=== PATIENT | female | born 1960 | race Caucasian/White ===

== ENCOUNTER 2018-12-26 17:48 | Emergency (ER) | payer SELFPAY ==
[~2018-12-26] VITALS: Ht 163 cm; Wt 94.2 kg
--- NOTE | 2018-12-26 20:08 | ED Lower Extremity ---
General Chief Complaint: Lower Extremity Stated Complaint: RIGHT LEFT LEG SWELLING Nursing Triage Note: Patient c/o right leg pain and swelling. States that she had her left hip replaced 5 weeks ago and ever since then her right leg has been swelling up. She states that when her right leg swells it becomes painful to walk. Nursing Sepsis Screen: No Definite Risk Source: patient History of Present Illness Date Seen by Provider: Dec 26, 2018 Time Seen by Provider: 20:07 Initial Comments 58-year-old female presenting with complaints of swelling to the right leg. She states that this is been going on for several months. It was occurring before she had surgery on her left hip for hip replacement 5 weeks ago. She has tried elevation, ice, compression socks with minimal improvement. She has not seen her primary provider about the leg swelling. She states that she came to the emergency department today because she is tired of dealing with swelling and wants it to go away. She states that she is not having any pain in the right leg but that she is getting swelling there. When she had talked to her orthopedic doctor about it they felt that it was related to her right hip and that it would need to be replaced as well. Her last hip replacement on the right side was over 15 years ago. She denies any new trauma or injury to the right leg. Allergies and Home Medications Patient Home Medication List Home Medication List Reviewed: Yes Review of Systems Constitutional: No chills, No fever EENTM: no symptoms reported Respiratory: No dyspnea on exertion, No short of breath Cardiovascular: No chest pain Gastrointestinal: no symptoms reported Genitourinary: no symptoms reported Musculoskeletal: see HPI Skin: no symptoms reported Psychiatric/Neurological: Denies Numbness, Denies Paresthesia, Denies Tingling Past Rmbevig-Xpimal-Bamvpw Hx Past Med/Social Hx: Reviewed Nursing Past Med/Soc Hx Patient Social History Alcohol Use: Denies Use Recreational Drug Use: No Smoking Status: Current Everyday Smoker Type Used: Cigarettes 2nd Hand Smoke Exposure: No Recent Foreign Travel: No Contact w/Someone Who Travel: No Recent Infectious Disease Expo: No Recent Hopitalizations: No Physical Abuse: No Sexual Abuse: No Mistreated: No Fear: No Seasonal Allergies Seasonal Allergies: No Past Medical History Surgeries: Yes Hysterectomy, Orthopedic, Tonsillectomy Respiratory: No Cardiac: Yes Hypertension 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 oz. kg; 35.00 BMI Method: General Appearance: WD/WN, no apparent distress Neck: non-tender, full range of motion, supple, normal inspection Cardiovascular: normal peripheral pulses, regular rate, rhythm, other (edema with swelling to the right lower extremity.) Respiratory: chest non-tender, lungs clear, normal breath sounds, no respiratory distress, no accessory muscle use Neurologic/Tendon: normal sensation, normal motor functions Neurologic/Psychiatric: alert Skin: normal color, warm/dry Progress/Results/Core Measures Results/Orders Vital Signs/I&O 12/26/18 12/26/18 18:50 20:17 Temp 37.0 37.0 Pulse 95 95 Resp 18 18 B/P (MAP) 156/106 (123) 156/106 (123) Pulse Ox 98 98 O2 Delivery Room Air Room Air Blood Pressure Mean: 123 Progress Progress Note : Progress Note I advised the patient that I would recommend an ultrasound to evaluate the blood flow that leg since she has not had that done. However I do not have access to ultrasound tonight or this weekend. She states she wants the swelling to go away. I did told her that the treatment she was telling her the ones that we would have to try and help with the swelling. She was distressed that I did not have any other options to offer her. She was also upset that I had not reviewed all of her chart in the computer prior to coming to speak with her. I explained that I was with a critical patient and knew that she had been waiting site just to come in to talk with her other than review the chart. I told her if she would prefer I can go reviewed the chart and come back. She was willing to proceed with answering questions at that point. She was upset and frustrated that I could not make the swelling go away in her leg. She got her purse and belongings and got up to leave rather than sign any AMA papers or wait to speak with any other staff. Departure Impression Primary Impression: Left against medical advice Additional Impression: Right leg swelling Disposition: 07 AGAINST MEDICAL ADVICE Condition: Against Medical Advice Departure-Patient Inst. Referrals: CANDE RIVERS DO (PCP) Primary Care Physician HEIDE HANDY MD Dec 26, 2018 20:08
[2018-12-26 20:17] VITALS: BP 156/106
--- NOTE | 2018-12-26 20:19 | NUR ---
pt. upset about the wait. pt. had been informed of the delay was do to an emergency. pt. left without signing the ama form.
--- OUTSIDE RECORDS SUMMARY | 2019-01-19 09:57 | XMS REPORT | Continuity of Care Document ---
Author Organization Unknown POS Address Unknown SP Phone Unavailable SP Allergies There is no data. Medications There is no data. 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 Results There is no data. Encounters ACCT No. Visit Date/Time Discharge Status POS Pt. Type Provider Facility Loc./Un it POS Complaint POS [id number] 10/11/2018 08:50:00 10/11/2018 23:59: 59 CLS SP Outpatient [facility] SP [id number] 12/26/2018 17:53:00 019 20:20:00 SP DIS Outpatient HEIDE HANDY MD SP - [facility] RIGHT LEFT LEG SWELLING SP
== END 2018-12-26 20:20 | disposition left against medical advice (07) ==
LOC: EDUNIT# 17:48 → ER FS 17:53
DX: M79.89 Other specified soft tissue disorders (principal); I10 Essential (primary) hypertension; F17.210 Nicotine dependence, cigarettes, uncomplicated; Z96.641 Presence of right artificial hip joint; Z90.710 Acquired absence of both cervix and uterus; Z90.89 Acquired absence of other organs
CPT/HCPCS: 99283

== ENCOUNTER → 2021-12-22 | Outpatient (CLI) | payer BC ==
--- NOTE | 2021-12-22 15:55 | Diagnostic Imaging Report ---
INDICATION: Right knee pain. COMPARISON: None. FINDINGS: Frontal and lateral radiographic views of the right knee were obtained. There are moderate osteoarthritic changes consisting of tricompartmental joint space narrowing with osteophyte formations. Joint spaces are otherwise maintained. Osseous structures are intact. Moderate suprapatellar joint effusion is noted. No unexpected radiopaque foreign bodies are seen. IMPRESSION: 1. Moderate joint effusion, but no radiographic evidence of acute fracture or dislocation of the right knee. 2. Moderate osteoarthritic changes. Dictated by: Dictated on workstation # [id number]
== END ==
LOC: RAD FS 13:46
PROVIDERS: ATTEND Nurse Practitioner Family
DX: M17.11 Unilateral primary osteoarthritis, right knee (principal)
CPT/HCPCS: 73560

== ENCOUNTER 2022-03-20 00:46 | Emergency (ER) | payer OTHER, BC ==
[~2022-03-20] VITALS: Ht 162 cm; Wt 90.7 kg
--- NOTE | 2022-03-20 00:59 | ED Upper Extremity ---
General Stated Complaint: WC,L HAND PAIN Source: patient Exam Limitations: no limitations History of Present Illness Date Seen by Provider: Mar 20, 2022 Time Seen by Provider: 00:53 Initial Comments 62-year-old female presents to the emergency department today for left hand pain. She had a work comp injury when she hit her hand with a rubber mallet 2 weeks ago. She has continued pain lateral aspect of her left little finger, tender to the base of her hand extending medially. She states she is used Tylenol, ibuprofen, tramadol and hydrocodone without any relief. She has follow-up with her primary doctor tomorrow. She states "I just want the pain to go away." She denies any new injuries. She was seen in urgent care initially after the injury and had x-rays which were negative. Pain is dull throbbing in the above-mentioned areas. Aggravated by movement and relieved by rest. She describes it as moderate to severe. Allergies and Home Medications Patient Home Medication List Home Medication List Reviewed: Yes Review of Systems Constitutional: no symptoms reported EENTM: no symptoms reported Respiratory: no symptoms reported Cardiovascular: no symptoms reported Gastrointestinal: no symptoms reported Genitourinary: no symptoms reported Musculoskeletal: other (Left hand pain) Skin: no symptoms reported Psychiatric/Neurological: No Symptoms Reported Past Kdtdtvs-Uluuaj-Rqxwvc Hx Patient Social History Tobacco Use?: Yes Use of E-Cig and/or Vaping dev: No Substance use?: No Alcohol Use?: No Seasonal Allergies Seasonal Allergies: No Past Medical History Surgeries: Yes Hysterectomy, Orthopedic, Tonsillectomy Respiratory: No Cardiac: Yes Hypertension 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 oz. kg; 35.00 BMI Method: General Appearance: WD/WN, no apparent distress HEENT: normal ENT inspection, pharynx normal Neck: non-tender Cardiovascular: regular rate, rhythm, no murmur Respiratory: chest non-tender, normal breath sounds Gastrointestinal: normal bowel sounds, soft Shoulder: normal inspection, non-tender Elbow/Forearm: normal inspection, non-tender Wrist: Yes normal inspection, Yes non-tender Hand: soft tissue tenderness (Tenderness palpation throughout the little finger and hand beneath the little finger of her left hand. There is no swelling, deformity. Neurovascular motor and sensory intact.) Neurologic/Psychiatric: alert, oriented x 3 Skin: normal color, warm/dry Departure Communication (Admissions) Patient is hemodynamically stable, neurovascular motor and sensory intact. She has had x-rays which were negative. Injury was 2 weeks ago and she has been on a myriad of pain medication since that time. I discussed with her that I did not think that stronger narcotic pain medication was appropriate at this time. We did talk briefly about gabapentin but when I voiced that it would not work for her immediately she stated that she did not want to try this. I offered a shot of Toradol which she declined as well. I again advised that I did not believe it appropriate to treat with stronger narcotic pain medications, especially 2 weeks out. She becomes visibly frustrated. We discussed her treatment and care and answered all her questions. She is discharged in stable condition. Impression Primary Impression: Left hand pain Disposition: 01 HOME, SELF-CARE Condition: Stable Departure-Patient Inst. Referrals: CANDE RIVERS DO (PCP/Family) Primary Care Physician Patient Instructions: Hand Pain Add. Discharge Instructions: Continue your tramadol, hydrocodone as needed for pain. Follow-up with your primary doctor and specialist as previously recommended. Return to the ER for any severe concerns. ANA POON DO Mar 20, 2022 00:59
[2022-03-20 01:00] VITALS: BP 132/109
== END 2022-03-20 01:00 | disposition home or self-care (01) ==
LOC: EDUNIT# 00:46 → ER FS 00:48
DX: M79.642 Pain in left hand (principal); Z28.310 Unvaccinated for COVID-19; W22.09XA Striking against other stationary object, initial encounter; Y92.59 Other trade areas as the place of occurrence of the external cause; Y99.0 Civilian activity done for income or pay
CPT/HCPCS: 99281